=== PATIENT | male | born 1960 | race Caucasian/White ===

== ENCOUNTER 2017-02-21 11:59 | Emergency (ER) | payer MEDICARE, MEDICAID ==
[2017-02-21 12:08] VITALS: BP 150/92; PULSE 95; RESP 20; TEMP 98.1; O2SAT 96
== END 2017-02-21 13:42 | disposition home or self-care (01) | DRG 156 ==
LOC: ED 11:59
DX: S02.2XXA Fracture of nasal bones, initial encounter for closed fracture (principal); R04.0 Epistaxis; W01.0XXA Fall on same level from slipping, tripping and stumbling without subsequent striking against object, initial encounter
CPT/HCPCS: 70486; 99282